=== PATIENT | female | born 1935 ===

== ENCOUNTER 2017-08-02 09:28 | Outpatient (CLI) | payer OTHER ==
[~2017-08-02] VITALS: Ht 170.2 cm; Wt 78.0 kg
== END 2017-08-02 09:45 | disposition home or self-care (01) ==
LOC: OFIC 805 09:28
DX: R13.19 Other dysphagia (principal); K21.9 Gastro-esophageal reflux disease without esophagitis; R05 Cough

== ENCOUNTER 2017-09-11 12:29 | Outpatient (CLI) | payer OTHER ==
[~2017-09-11] VITALS: Ht 152.4 cm; Wt 81.6 kg
== END 2017-09-11 12:40 | disposition home or self-care (01) ==
LOC: OFIC 805 12:29
DX: K21.9 Gastro-esophageal reflux disease without esophagitis (principal); R13.19 Other dysphagia; R05 Cough